=== PATIENT | female | born 1955 | race African-American/Black ===

== ENCOUNTER 2016-11-11 08:04 | Emergency (ER) | payer OTHER ==
--- NOTE | ~2016-11-11 | EKG ---
PATIENT: MAX ADAME UNIT #: [id number] Ventricular Rate: 71 BPM Atrial Rate: 71 BPM P-R Interval: 152 ms QRS Duration: 84 ms Q-T Interval: 464 ms QTC Calculation(Bezet): 504 ms P [place]: 71 degrees Calculated R [place]: 64 degrees Calculated T [place]: 14 degrees Diagnosis Line: Normal sinus rhythm Diagnosis Line: ST and T wave abnormality, consider anterior Diagnosis Line: ischemia Diagnosis Line: Prolonged QT Diagnosis Line: Abnormal ECG Diagnosis Line: No previous ECGs available Diagnosis Line: Confirmed by WAQAR MTZ MD ([id number]) on Diagnosis Line: 11/14/2016 3:59:28 PM INTERPRETING MD: BIBI GONG
--- NOTE | ~2016-11-11 | EKG ---
PATIENT: MAX ADAME UNIT #: [id number] Ventricular Rate: 68 BPM Atrial Rate: 68 BPM P-R Interval: 152 ms QRS Duration: 82 ms Q-T Interval: 454 ms QTC Calculation(Bezet): 482 ms P [place]: 37 degrees Calculated R [place]: 62 degrees Calculated T [place]: 68 degrees Diagnosis Line: Normal sinus rhythm Diagnosis Line: ST and T wave abnormality, consider anterior Diagnosis Line: ischemia Diagnosis Line: Prolonged QT Diagnosis Line: Abnormal ECG Diagnosis Line: When compared with ECG of 30-JUN-2016 10:05, Diagnosis Line: T wave inversion no longer evident in Inferior Diagnosis Line: leads Diagnosis Line: Confirmed by WAQAR MTZ MD ([id number]) on Diagnosis Line: 11/14/2016 4:00:14 PM INTERPRETING MD: BIBI GONG
--- NOTE | ~2016-11-11 | CR63 ---
[facility] A Service of [facility] & [facility] RADIOLOGY TEXT RESULTS PATIENT: MAX ADAME LOCATION: [facility] : 57 UNIT #: [id number] AGE: [address]: BIBI LAWRENCE SEX: F ORDER DR: [id number] [facility] [address] [place], [place] [address] [id number] E MR#: [id number] Acc #: [id number] NAME: MAX ADAME : 1955 SEX: F STUDY DATE/TIME: 11/11/2016 8:47 UNIT: [facility] ROOM: STUDY DESCRIPTION: CR Chest 2 View Attending Physician: Bibi Lawrence Aprn Ordering Physician: Saw Mead M.D. Primary Care Physician: Arminda Buck M.D. MEDICAL IMAGING REPORT This report is preliminary unless electronic signature is present EXAM Chest x-ray portable. HISTORY Chest pain, heartburn, headache; symptoms started yesterday. COMMENT 2 views of the chest reviewed. There is comparison, 03/18/2005. Heart size is normal. No pneumothorax. No pleural effusion. Old right rib fracture healed with some deformity. No acute-appearing parenchymal infiltrate, acute congestive failure, or pleural effusion. Additional lateral view is submitted and this shows mild chronic wedging of mid to upper thoracic vertebral bodies with multilevel mild endplate spondylosis and probably some demineralization. Please correlate for any clinical evidence of osteopenia. There is an eventration of the right hemidiaphragm, which is not changed, and the lungs are mildly hyperinflated. IMPRESSION No active disease. STAT * RESULT Dictated by... Marjorie Blunt M.D. THIS IS AN ELECTRONICALLY VERIFIED REPORT Marjorie Blunt M.D. at 11/11/2016 4:00 PM SAC/pc TD: 11/11/2016 09:16 JOB #: [id number] [facility] A Service of [facility] & [facility] RADIOLOGY TEXT RESULTS PATIENT: MAX ADAME [facility]: [facility] #: [id number] : 57 UNIT #: [id number] AGE: [address]: BIBI LAWRENCE SEX: F ORDER DR: MEDICAL IMAGING REPORT COPY
[~2016-11-11 08:04] MED LIST: ATENOLOL50 MG PO; BACTRIM 400-801 TA1 PO; SIMVASTATIN10 MG PO
[2016-11-11 08:37] LABS: POC - CKMB 2.3 ng/mL (0.0-7.9); POC - TROPONIN <0.05 ng/mL (<=0.05)
[2016-11-11 10:04] LABS: BASOPHIL% 0.1 % (0-2.5); EOSINOPHIL# 0.1 X10e3 (0-0.7); EOSINOPHIL% 0.6 % (0.0-7.0); HEMATOCRIT 40.2 % (35.0-45.0); HEMOGLOBIN 13.4 gm/dL (12.0-16.0); LYMPHOCYTE# 2.5 X10e3 (1.0-3.5); MEAN CELL VOLUME 88.2 FL (83-96); MEAN CORPUSCULAR HEMOGLOBIN 29.4 PG (28-34); MEAN CORPUSCULAR HGB CONC 33.4 g/dL (30-36); MONOCYTE# 0.5 X10e3 (0-1.0); NEUTROPHIL# 9.9 X10e3 (1.5-7.1); NEUTROPHIL% 76.3 % (40-75); PLATELET COUNT 318 X10e3 (140-420); RED BLOOD COUNT 4.56 X10e (3.90-5.30); RED CELL DISTRIBUTION WIDTH 14.2 % (11.0-15.5); WHITE BLOOD COUNT 12.9 X10e3 (4.0-10.5)
[2016-11-11 10:10] LABS: DIFF IND NO
[2016-11-11 10:37] LABS: ALKALINE PHOSPHATASE 114 U/L (32-92); ALT (SGPT) 20 U/L (10-40); AST (SGOT) 23 U/L (10-42); BILIRUBIN,TOTAL 0.5 mg/dL (0.2-2.0); BLOOD UREA NITROGEN 18 mg/dL (9-23); CALCIUM SERUM 9.5 mg/dL (8.4-10.2); CARBON DIOXIDE 27 mmol/L (22-31); CHLORIDE 102 mmol/L (100-111); CREATININE SERUM 0.8 mg/dL (0.6-1.4); GLOM FILT RATE Estimated ABOVE60 mL/min (>60); GLUCOSE FASTING 143 mg/dL (70-110); LIPASE 14 U/L (22-51); POTASSIUM 3.6 mmol/L (3.5-5.1); PROTEIN TOTAL SERUM 7.4 g/dL (6.0-8.3); SODIUM 139 mmol/L (135-145)
[2016-11-11 12:48] LABS: POC - CKMB 2.7 ng/mL (0.0-7.9); POC - TROPONIN <0.05 ng/mL (<=0.05)
== END 2016-11-11 13:53 | disposition home or self-care (01) ==
LOC: CED 08:04
PROVIDERS: Nurse Practitioner Family
DX: I20.9 Angina pectoris, unspecified (principal); R10.11 Right upper quadrant pain; R10.12 Left upper quadrant pain; F17.210 Nicotine dependence, cigarettes, uncomplicated; Z98.890 Other specified postprocedural states; Z86.79 Personal history of other diseases of the circulatory system; Z88.8 Allergy status to other drugs, medicaments and biological substances
CPT/HCPCS: 36415; 71020; 80053; 82553; 83690; 84484; 85025; 93005; 96361; 96374; 96375; 99284; J2270; J2405; J2550

== ENCOUNTER → 2016-12-29 | Outpatient (CLI) | payer OTHER ==
--- NOTE | ~2016-12-29 | CT113 ---
[facility] A Service of [facility] RADIOLOGY TEXT RESULTS PATIENT: MAX ADAME LOCATION: [facility] : 57 UNIT #: [id number] AGE: [address]: Main Quevedo MD SEX: F ORDER DR: [id number] [facility] [address] [place], [place] [address] [id number] O MR#: [id number] Acc #: [id number] NAME: MAX ADAME : 1955 SEX: F STUDY DATE/TIME: 12/29/2016 12:12 UNIT: [facility] ROOM: STUDY DESCRIPTION: CT Sinuses Wo Contrast Attending Physician: Main Quevedo III, M.D. Referring Physician: Main Quevedo III, M.D. Ordering Physician: Main Quevedo III, M.D. Primary Care Physician: Arminda Buck M.D. MEDICAL IMAGING REPORT This report is preliminary unless electronic signature is present EXAM Sinus CT no contrast DATE OF EXAMINATION 12/29/2016 PROC[address]URE Axial unenhanced sinus CT with multiplanar reformats. This CT exam was performed with one or more of the following radiation dose reduction techniques: automatic exposure control, adjustment of mA and/or kV according to patient size, and iterative reconstruction. COMPARISON STUDIES Comparison head CT 07/02/2016 HISTORY Head and sinus congestion, history of chronic sinusitis. FINDINGS There is mild motion degradation. The frontal sinuses, ethmoid air cells, and sphenoid chambers are normally pneumatized and aerated with mild left sphenoid dominance. There is slight right maxillary medial wall mucosal thickening but the maxillary sinuses are normally pneumatized. The infundibula are patent bilaterally. There is leftward septal deviation and spur. There is a right middle turbinate armando bullosa. The adjacent soft tissues are unremarkable. IMPRESSION [facility] A Service of [facility] RADIOLOGY TEXT RESULTS PATIENT: MAX ADAME LOCATION: [facility] : 57 UNIT #: [id number] AGE: [address]: Main Quevedo MD SEX: F ORDER DR: 1. Slight right maxillary medial wall mucosal thickening. Otherwise no evidence of sinus mucosal disease. 2. Leftward nasal septal deviation and spur, armando bullosa in the anterior portion of the right middle turbinate. Dictated by... Jim Green M.D. THIS IS AN ELECTRONICALLY VERIFIED REPORT Jim Green M.D. at 01/03/2017 9:47 AM CHELLE/christina TD: 12/29/2016 16:44 JOB #: [id number] MEDICAL IMAGING REPORT Page 1 of 1 COPY
== END | disposition home or self-care (01) ==
LOC: CCAT 11:53
DX: J32.4 Chronic pansinusitis (principal); J34.2 Deviated nasal septum; J34.89 Other specified disorders of nose and nasal sinuses
CPT/HCPCS: 70486